=== PATIENT | male | born 1960 | race American Indian/Alaskan Native ===

== ENCOUNTER 2020-09-18 09:19 | Day surgery (SDC) | payer MEDICARE ==
[~2020-09-18 09:19] MED LIST: GENTAMICIN/NS 120MG/100ML 120 MG/100 ML BAG IV SCH; ceFAZolin/STERILE WATER 2 GM/20 ML SYRINGE IV NR
[2020-09-18] MEDS ORDERED: LACTATED RINGERS 1,000 ML ONE (09:43)
[2020-09-18] MEDS ORDERED: ONDANSETRON 4 MG/2 ML INJ IV PRN (10:17)
[2020-09-18] MEDS ORDERED: HYDROmorphone 1 MG/1 ML INJ IV PRN ×2 (10:17)
--- NOTE | 2020-09-18 10:26 | Anesthesia Day of Surgery ---
Anesthesia Day of Surgery - Day of Surgery Patient Examined: Yes Patient H&P Reviewed: Yes Patient is NPO: Yes
--- NOTE | 2020-09-18 10:27 | Anesthesia Consultation ---
Anesthesia Consult and Med Hx Date of service: 09/18/20 - Airway Anesthetic Teeth Evaluation: Good, Partials ROM Head & Neck: Adequate Mental/Hyoid Distance: Adequate Mallampati Class: Class II Intubation Access Assessment: Probably Good - Pre-Operative Health Status ASA Pre-Surgery Classification: ASA2 Proposed Anesthetic Plan: General - Pulmonary Hx Smoking: No Hx Sleep Apnea: No (CLARE PRE SCREEN HIGH RISK) - Cardiovascular System Hx Hypertension: Yes (X AT LEAST 10 YRS) - Central Nervous System Hx Neuromuscular Disorder: Yes (Pt is nonverbal; has developmental delay) - Other Systems Hx Cancer: (UNKNOWN PER CAREGIVER)
[2020-09-18] MEDS ORDERED: HYDROmorphone 1 MG/1 ML INJ ONE (10:55)
[2020-09-18] MEDS ORDERED: propofoL 200 MG/20 ML VIAL IV ONE (10:56)
[2020-09-18] MEDS ORDERED: LIDOCAINE MPF (2%) 20 MG/1 ML VIAL 5 ML ONE (10:56)
[2020-09-18] MEDS ORDERED: LACTATED RINGERS 1,000 ML IV SCH (11:00)
[2020-09-18] MEDS ORDERED: WATER FOR IRRIG STERILE 1,500 ML BOTTLE IR ONE (11:15)
[2020-09-18] MEDS ORDERED: WATER FOR IRRIG STERILE 2000 ML IR ONE (11:16)
--- NOTE | 2020-09-18 11:48 | Post Operative Note ---
Date of procedure: 09/18/20 Pre-op diagnosis: inc psa bph Post-op diagnosis: same Findings: cysto pus Procedure: as above Anesthesia: GETA Surgeon: DARYN MCCANN Estimated blood loss: minimal Pathology: list (prostate) Specimen disposition: to lab Condition: stable Disposition: PACU
--- NOTE | 2020-09-18 11:49 | Discharge Summary ---
Short Stay Discharge Plan Activity: other (no straining ) Weight Bearing Status: Full Weight Bearing Diet: low fat, low cholesterol, low salt Special Instructions: other (inc fluids ) Follow up with: NOEL MTZ MD [Primary Care Provider] - 7 Days DARYN MCCANN MD [Staff Physician] - 14 Days
--- NOTE | 2020-09-18 12:48 | Operative Report ---
PREOPERATIVE DIAGNOSES: Elevated prostate-specific antigen and handicapped with the inability to do this in the office. POSTOPERATIVE DIAGNOSES: Elevated prostate-specific antigen and handicapped with the inability to do this in the office. PROCEDURE: Flexible cystoscopy, prostate biopsy. SURGEON: Dr. Soto. ANESTHESIA: General. FINDINGS: This is a gentleman who we were not able to do a prostate biopsy in the office, he now presents for treatment. DESCRIPTION OF PROCEDURE: The patient was brought to the operating room and placed on the operating table. Following induction of anesthesia, placed in lithotomy position, prepped and draped in usual sterile fashion. Flexible cystoscopy showed a smooth bladder and no urethral strictures, mild BPH, open bladder neck. At this point, the ultrasound was placed and the prostate measured approximately 29 grams. Biopsies quadrant was done; 6 on the right, 6 on the left. We had a couple of small pieces, so we doubled up on some of them. The patient tolerated the procedure well. A rectal foam was placed. There was no significant bleeding, brought to recovery room in stable condition. JOB# [id number] CHANELLE/ALYSON
--- NOTE | 2020-09-18 14:11 | Ultrasound Report ---
ULTRASOUND TRANSRECTAL HISTORY: Elevated PSA TECHNIQUE: Grayscale ultrasound COMPARISON: None. FINDINGS: Transrectal ultrasound guidance was provided by radiology during prostate biopsy by urology . The prostate gland measures 4.8 x 2.9 x 4.1 cm with volume measuring 29.5 cc. No gross prostate mas s on the given images. IMPRESSION: Successful ultrasound-guided prostate biopsy as described. Signer Name: Lorenzo Simeon Jr, MD Signed: 09/18/2020 2:07 PM Workstation Name: [id number]
--- NOTE | 2020-09-18 14:32 | Post Anesthesia Evaluation ---
- Post Anesthesia Evaluation Patient Participated: Yes Airway Patent: Yes Stable Respiratory Function: Yes Nausea/Vomiting: No Temp > 96.8F: Yes Pain Manageable: Yes Adequeate Hydration: Yes Anesthesia Complications: No Block Receding Appropriately: Not Applicable Patient on Ventilator: No
[2020-09-18 15:44] VITALS: BP 128/77
== END 2020-09-18 09:20 | disposition home or self-care (01) ==
LOC: OR 09:19
PROVIDERS: ATTEND Urology
DX: R97.20 Elevated prostate specific antigen [PSA] (principal); N40.0 Benign prostatic hyperplasia without lower urinary tract symptoms; I10 Essential (primary) hypertension; K21.9 Gastro-esophageal reflux disease without esophagitis; Z98.890 Other specified postprocedural states; Z79.899 Other long term (current) drug therapy
CPT/HCPCS: 36415; 52000; 55700; 76872; 84132; 88305; A4217; J0690; J1170; J1580; J2704; J7120